=== PATIENT | female | born 1960 | race African-American/Black ===

== ENCOUNTER 2018-07-30 22:54 | Inpatient (IN) | payer OTHER ==
[~2018-07-30] VITALS: Ht 167.6 cm; Wt 81.2 kg
[2018-07-30 22:55] VITALS: BP 187/106
[2018-07-30 23:13] LABS: ABSOLUTE NEUTROPHILS 4.7 thou/uL (1.4-8.2); BASOPHILS 0.9 % (0.0-2.0); EOSINOPHILS 5.6 % (0.0-3.0); HEMATOCRIT 31.3 % (37.0-47.0); HEMOGLOBIN 10.7 gm/dL (12.0-15.0); MCH 31.5 pg (26.0-34.0); MCHC 34.3 g/dL (28.0-37.0); MONOCYTES 5.1 % (1.0-8.0); PLATELET COUNT 375 thou/uL (150-400); POLYS 51.4 % (36.0-66.0); RDW 15.4 % (10.5-14.5); WBC 9.1 thou/uL (4.0-11.0)
[2018-07-30 23:21] LABS: ANION GAP 4 mmol/L (7-16); BUN 8 mg/dL (7-18); CALCIUM 8.5 mg/dL (8.5-10.1); CHLORIDE 104 mmol/L (98-107); CO2 30 mmol/L (21-32); GLUCOSE 102 mg/dL (74-106); POTASSIUM 3.7 mmol/L (3.5-5.1); SODIUM 138 mmol/L (136-145)
[2018-07-30 23:30] LABS: ALBUMIN 3.4 g/dL (3.4-5.0); MAGNESIUM 1.8 mg/dL (1.8-2.4); SGOT 18 U/L (15-37); SGPT 17 U/L (30-65); TOTAL BILIRUBIN 0.2 mg/dL (<0.1-1.0); TOTAL PROTEIN 7.6 g/dL (6.4-8.2); TROPONIN-I <0.06 ng/mL (<0.06)
[2018-07-30] MEDS ORDERED: AMLODIPINE BESY10 MG PO (23:51)
[2018-07-30] MEDS ORDERED: TYLENOL325 MG PO (23:51)
[2018-07-30] MEDS ORDERED: ASA5UEC PO (23:51)
[2018-07-30] MEDS ORDERED: VALIUM5 MG PO (23:52)
[2018-07-30] MEDS ORDERED: COLACE100 MG PO (23:53)
[2018-07-30] MEDS ORDERED: ESTRADIOL 1 MG T1 M1 PO (23:53)
[2018-07-30] MEDS ORDERED: FENTANYL 0.50 MCG/ML TOP (23:54)
[2018-07-30] MEDS ORDERED: MOBIC15 MG PO (23:54)
[2018-07-30] MEDS ORDERED: NEURONTIN600 MG PO (23:54)
[2018-07-30] MEDS ORDERED: COZAAR 25 MG TA25 M1 PO (23:54)
[2018-07-30] MEDS ORDERED: TOPROL XL25 MG PO (23:55)
[2018-07-30] MEDS ORDERED: ROBAXIN 750 MG750 M1 PO (23:55)
[2018-07-30] MEDS ORDERED: SAVELLA100 MG PO (23:56)
[2018-07-30] MEDS ORDERED: MILK OF MA2400 MG/10 PO (23:56)
[2018-07-30] MEDS ORDERED: TOPROL XL50 MG PO (23:56)
[2018-07-30] MEDS ORDERED: OMEPRAZOLE20 M1 PO (23:57)
[2018-07-30] MEDS ORDERED: ZANTAC 150MG T150 MG PO (23:58)
[2018-07-30] MEDS ORDERED: ROXICODONE30 M1 PO (23:58)
[2018-07-31] MEDS ORDERED: BACTRIM DS TAB1 EACH PO (00:07)
[2018-07-31] MEDS ORDERED: TRIAMCINOLONE A80 G2 TOP (00:07)
[2018-07-31 00:53] LABS: URINE BILIRUBIN NEGATIVE (Negative); URINE BLOOD NEGATIVE (Negative); URINE CLARITY CLEAR; URINE COLOR YELLOW; URINE GLUCOSE-RANDOM* NEGATIVE (Negative); URINE KETONES NEGATIVE (Negative); URINE LEUKOCYTES-REFLEX NEGATIVE (Negative); URINE NITRITE-REFLEX NEGATIVE (Negative); URINE PROTEIN (DIPSTICK) NEGATIVE (Negative); URINE SPECIFIC GRAVITY <= 1.005 (1.005-1.035); URINE UROBILINOGEN 0.2 E.U./dl (0.2-1.0)
[2018-07-31 02:41] VITALS: BP 136/84
[2018-07-31 02:52] VITALS: BP 136/84
[2018-07-31 03:31] VITALS: BP 145/88
[2018-07-31 06:42] LABS: CALCIUM 8.3 mg/dL (8.5-10.1); POTASSIUM 4.1 mmol/L (3.5-5.1)
[2018-07-31 07:48] VITALS: BP 145/95
--- NOTE | 2018-07-31 08:43 | NUR ---
admit pt admitted to room 451 via ed. being admitted with soa. iv to left forearm,in fusing ivf's with no difficulty. denies pain. pt able to turn self and adjust sleeping position. vss, discussed poc. pt and family r/v understanding.
[2018-07-31 15:26] VITALS: BP 141/92
--- NOTE | 2018-07-31 16:24 | 2DMMODE ---
[facility] [address] [place] [address] 2 D/M-MODE ECHOCARDIOGRAM Name: MINDY BLANDIS Room #: 451-P ADM IN .R.#: [id number] Admission: 07/31/18 Attend Phys: Daniel Dumont MD Discharge: Date of : 60 Date of Service: 07/31/18 1624 Report #: [id number] THIS REPORT FOR: //name// APPROVED REPORT Study performed: 07/31/2018 08:06:21 EXAM: Comprehensive 2D, Doppler, and color-flow Echocardiogram Patient Location: Bedside Room #: [facility] Status: on-call BSA: 1.91 HR: 84 bpm BP: 145/88 mmHg Rhythm: NSR Other Information Study Quality: Adequate Indications Pulmonary Embolism Dyspnea 2D Dimensions RVDd: 29.95 mm IVSd: 12.00 (7-11mm) LVOT Diam: 19.62 (18-24mm) LVDd: 42.09 mm PWd: 12.00 (7-11mm) Ascending Ao: 25.12 (22-36mm) LVDs: 30.06 (25-40mm) Aortic Root: 29.88 mm Volumes Left Atrial Volume (Systole) Single Plane 4CH: 38.59 mL Single Plane 2CH: 37.26 mL LA ESV Index: 22.00 mL/m2 Aortic Valve AoV Peak Samm.: 1.49 m/s AO Peak Gr.: 8.82 mmHg LVOT Max P.79 mmHg LVOT Max V: 0.97 m/s RAPHAEL Vmax: 1.98 cm2 Mitral Valve E/A Ratio: 1.4 MV Decel. Time: 196.18 ms [facility] [address] [place] [address] 2 D/M-MODE ECHOCARDIOGRAM Name: ANGUS BLAND Room #: 451-P [facility] IN [facility]#: [id number] Admission: 07/31/18 Attend Phys: Daniel Dumont MD Discharge: Date of : 60 Date of Service: 07/31/18 1624 Report #: [id number] MV E Max Samm.: 0.87 m/s MV A Samm.: 0.62 m/s MV PHT: 56.89 ms IVRT: 65.74 ms Pulmonary Valve PV Peak Samm.: 1.05 m/s PV Peak Gr.: 4.42 mmHg Pulmonary Vein P Vein S: 0.42 m/s P Vein D: 0.58 m/s P Vein S/D Ratio: 0.72 Tricuspid Valve TR Peak Samm.: 2.12 m/s RAP Estimate: 5.00 mmHg TR Peak Gr.: 17.99 mmHg PA Pressure: 23.00 mmHg Left Ventricle The left ventricle is normal size. There is normal LV segmental wall motion. Mild concentric left ventricular hypertrophy. Left ventricular systolic function is normal. LVEF is 55-60%. Right Ventricle The right ventricle is normal size. The right ventricular systolic function is normal. Atria The left atrium size is normal. The right atrium size is normal. Aortic Valve The aortic valve is normal in structure. No aortic regurgitation is present. There is no aortic valvular stenosis. Mitral Valve The mitral valve is normal in structure. Mild mitral regurgitation. Tricuspid Valve The tricuspid valve is normal in structure. Trace tricuspid regurgitation. Estimated PAP is 25mmHg. Pulmonic Valve The pulmonary valve is normal in structure. Trace pulmonic regurgitation. [facility] [place] [address] 2 D/M-MODE ECHOCARDIOGRAM Name: ANGUS BLAND Room #: 451-P ADM IN M.R.#: [id number] Admission: 07/31/18 Attend Phys: Daniel Dumont MD Discharge: Date of : 60 Date of Service: 07/31/18 1624 Report #: [id number] Great Vessels The aortic root is normal in size. The ascending aorta is normal in size. IVC is normal in size and collapses >50% with inspiration. Pericardium There is no pericardial effusion. <Conclusion> The left ventricle is normal size. LVEF is 55-60%. The aortic valve is normal in structure. The mitral valve is normal in structure. Mild mitral regurgitation. The tricuspid valve is normal in structure. Trace tricuspid regurgitation. Estimated PAP is 25mmHg. The pulmonary valve is normal in structure. Trace pulmonic regurgitation. There is no pericardial effusion. <ELECTRONICALLY SIGNED> By: Garo Tristan MD 07/31/18 1624 1624 162 Garo Tristan MD /INF
--- NOTE | 2018-07-31 18:26 | NUR ---
VSS-AFEBRILE. LUNGS CLEAR/DIMINISHED IN ALL CEBALLOS BILATERALLY. C/O PAIN WITH LEFT HIP. OCCASIONAL RELIEF WITH PRESCRIBED PAIN MEDS AND MUSCLE RELAXERS. ENCOURAGED TO SIT IN CHAIR FOR MEALS, WAS COMPLIANT WITH REQUEST. OOB WITH CANE, AND STAND BY ASSIST. TOLERATING MEALS WITH NO REPORTED N/V. NO DIFFICULTY VOIDING, NO BM THIS SHIFT. TRANSITIONED TO PO XARELTO THIS EVENING, EDUCATED ON MEDICATION AND ANSWERED MEDICATION RELATED QUESTIONS. MO REPORTS OF CHEST PAIN, SPORADIC REPORTS OF SOA. CALLS APPROPRIATELY FOR ANY NEEDED ASSISTANCE.
[2018-07-31 19:42] VITALS: BP 144/89
[2018-08-01 04:27] VITALS: BP 141/83
--- NOTE | 2018-08-01 06:00 | NUR ---
PT AMBULATING TO BATHROOM WITH STANDBY ASSIST AND IS TOLERATING FAIR. OXY IR PROVIDING PAIN RELIEF. RESTING COMFORTABLY. NO NEEDS VOICED. CALL LIGHT WITHIN REACH. WILL CONTINUE TO PROVIDE FREQUENT OBSERVATION.
[2018-08-01 07:20] VITALS: BP 131/84
[2018-08-01] MEDS ORDERED: XARELTO15 MG PO (10:52)
[2018-08-01] MEDS ORDERED: XARELTO20 MG PO (10:53)
[2018-08-01 11:01] VITALS: BP 131/84
--- NOTE | 2018-08-01 11:28 | NUR ---
ASSUMED CARE AT 0700. AXOX4. ADMIT WITH PE AND NOW ON XERALTO FOR 6MO. ON RA. PT WAS SEEN BY AT BEDSIDE. RECEIVED AN ORDER TO D/C HOME WITH PRESCRIPTION FOR XERALTO. D/C INSTRUCTION AND PRESCRIPTIONS GIVEN PT AT BEDSIDE. TELE REMOVED AND IV REMOVED. DTR P/U. NO S/S ACUTE DISTRESS NOTED OR REPORTED AT THIS TIME.
--- NOTE | 2018-08-01 21:56 | EKG ---
[address] [address] ELECTROCARDIOGRAM REPORT Name: BALDOANGUS Room #: 451-P [facility] IN M.R.#: [id number] Admission: 07/31/18 Attend Phys: Daniel Dumont MD Discharge: 08/01/18 Date of : 60 Report #: [id number] THIS REPORT FOR: //name// [facility] ED Test Date: 2018-07-30 Test Time: 23:33:52 Pat Name: ANGUS BLAND Department: Room: [facility] Gender: F Customer Experience Specialist: NGHIA : 1960 Requested By: Abhijit Mendez Order Number: [id number] MD: Demetrio Vivas Measurements Intervals Mcintosh Rate: 86 P: 69 AR: 138 QRS: 41 QRSD: 84 T: 61 QT: 373 QTc: 446 Interpretive Statements Sinus rhythm No previous ECG available for comparison Electronically Signed On 08-01-2018 21:56:14 OUTDOOR LANDSCAPE ARCHITECT by Demetrio Vivas [email or web address] <ELECTRONICALLY SIGNED> By: Demetrio Vivas MD 08/01/18 2156 [id number] MD KOTA Cyr
== END 2018-08-01 12:00 | disposition home or self-care (01) | DRG 176 ==
LOC: ER 22:54 → EROBS 07-31 01:10 → 4W 07-31 02:50
PROVIDERS: Emergency Medicine; Nurse Practitioner Family; ADMIT Hospitalist
DX: I26.99 Other pulmonary embolism without acute cor pulmonale (principal); M19.90 Unspecified osteoarthritis, unspecified site; Z96.642 Presence of left artificial hip joint; I73.00 Raynaud's syndrome without gangrene; M79.7 Fibromyalgia; Z79.82 Long term (current) use of aspirin; Z79.899 Other long term (current) drug therapy; Z88.8 Allergy status to other drugs, medicaments and biological substances
CPT/HCPCS: 10045